=== PATIENT | female | born 1950 | race Caucasian/White ===

== ENCOUNTER 2024-09-30 10:50 | Outpatient (AMB) | payer BC, SELFPAY ==
--- OUTSIDE RECORDS SUMMARY | 2024-09-30 12:02 | XMS_ITS | Clinical Summary ---
Author Organization [facility] Address [address] [place] [id number] Phone Care Team Providers Care Inspection Manager Name Role Phone Grace, Gary James Primary Care Provider Allergies Active Allergy Reactions Criticality Noted Date Comments Penicillins 03/26/2018 Medications pravastatin (PRAVACHOL) 40 MG tablet Take 40 mg by mouth daily. Active atenolol (TENORMIN) 25 MG tablet Take 25 mg by mouth daily. Active glucosamine-cho ndroitin 500-400 mg Cap Take 1 capsule by mouth 3 (three) times a day. Active aspirin 81 mg chewable tablet Take 81 mg by mouth daily. Active calcium carbonate (CALCIUM 600 ORAL) Take 1,200 mg by mouth 2 (two) times a day. Active Social History Tobacco Use Types Packs/Day Years Used Date Smoking Tobacco: Never Smokeless Tobacco: Never Alcohol Use Standard Drinks/Week Comments Yes 7 (1 standard drink = 0.6 oz pur e alcohol) Education Answer Date Recorded Are you interested in more education? Not on osorio e 06/03/2022 Are you concerned about learning? Not on file 06/03/2022 No 06/03/2022 No 06/03/2022 Digital Access Answer Date Recorded No 07/04/2022 No 07/04/2022 No 07/04/2022 Reliable internet access at home? Not on file 07/04/2022 Device with a working camera? Not on file Comments No Sex and Gender Information Value Date Recorded Sex Assigned at Female 03/26/2018 6:21 PM EST Legal Sex Female 10:00 PM EDT Gender Identity Female 03/26/2018 6:21 PM EST Sexual Orientation Straight 03/26/2018 6: 21 PM EST Last Filed Vital Signs Vital Sign Reading Time Taken Comments Blood Pressure 144/91 03/26/2018 10:00 PM EST Pulse 70 03/26/2018 10:00 PM EST Temperature 36 C (96.8 F) 03/26/2018 6:17 PM EST Respiratory Rate 16 03/26/2018 10:00 PM EST Oxygen Saturation 99% 03/26/2018 10:00 PM EST Inhaled Oxygen Concentration - - Weight 55.8 kg (123 lb) 03/26/2018 6:17 PM EST Height 161.3 cm (5' 3.5 ) 03/26/2018 6:17 PM EST Body Mass Index 21.45 03/26/2018 6:17 PM EST Plan of Treatment Not on file Medical Devices Not on file Insurance Take the [employer] SUPPLEMENT MEDICARE PART A & B [employer] MEDEX SUPPLEMENT MEDICARE PART A & B [facility] MEDEX SUPPLEMENT MEDICARE PART A & B [employer] MEDEX SUPPLEMENT MEDICARE PART A & [place] [address] [place] [address] [employer] MEDEX SUPPLEMENT MEDICARE PART A & B [employer] MEDEX SUPPLEMENT MEDICARE PART A & B [employer] MEDEX SUPPLEMENT MEDICARE PART A & B [employer] MEDEX SUPPLEMENT MEDICARE PART A & B [employer] MEDEX SUPPLEMENT MEDICARE PART A & B Care Teams Inspection Manager Relationship Specialty Start Date End Date Luis Grace DO [address] [facility] [place] [address] PCP - General Family Medicine 03/26/18 Additional Source Comments The information contained in this document represents components of the legal health record. It is not the complete legal health record.[facility]
== END 2024-09-30 11:21 | disposition home or self-care (01) ==
PROVIDERS: PCP Family Medicine; Visit Provider Registered Nurse Emergency
DX: J30.89 Other allergic rhinitis (principal)
CPT/HCPCS: 95117; 95165

== ENCOUNTER 2024-10-30 12:44 | Outpatient (AMB) | payer BC, SELFPAY ==
--- OUTSIDE RECORDS SUMMARY | 2024-10-30 15:13 | XMS_ITS | Clinical Summary ---
Author Organization [facility] Address [address] [place] [phone] Phone Care Team Providers Care Java Project Manager Name Role Phone Grace, Gary James [...] file Medical Devices Not on file Insurance [employer] SUPPLEMENT MEDICARE PART A & B [employer] MEDEX SUPPLEMENT MEDICARE PART A & B [facility] MEDEX SUPPLEMENT MEDICARE PART A & B [employer] MEDEX SUPPLEMENT MEDICARE PART A [place] [address] [place] [address] [employer] MEDEX SUPPLEMENT MEDICARE PART A & B [employer] MEDEX SUPPLEMENT MEDICARE PART A & B [employer] MEDEX SUPPLEMENT MEDICARE PART A & B [employer] MEDEX SUPPLEMENT MEDICARE PART A & B [employer] MEDEX SUPPLEMENT MEDICARE PART A & B Care Teams Java Project Manager Relationship Specialty Start Date End Date Luis Grace DO [address] [facility] [place] [address] PCP - General Family Medicine 03/26/18 Additional Source Comments The information contained in this document represents components of the legal health record. It is not the complete legal health record.[facility]
== END 2024-10-30 12:49 | disposition home or self-care (01) ==
LOC: HO.HMGAL 12:44
PROVIDERS: PCP Nurse Practitioner; Visit Provider Registered Nurse Emergency
DX: J30.89 Other allergic rhinitis (principal)
CPT/HCPCS: 95117; 95165

== ENCOUNTER 2024-12-11 13:19 | Outpatient (AMB) | payer MEDICARE, BC, SELFPAY ==
--- OUTSIDE RECORDS SUMMARY | 2024-12-11 16:08 | XMS_ITS | Clinical Summary ---
Author Organization [facility] Address [address] [place] [phone] Phone Care Team Providers Care Supervisor Wrapping Room Name Role Phone Grace, Gary James Primary [...] file Medical Devices Not on file Insurance [employer] SUPPLEMENT MEDICARE PART A & B [employer] MEDEX SUPPLEMENT MEDICARE PART A & B [facility] MEDEX SUPPLEMENT MEDICARE PART A & B [employer] MEDEX SUPPLEMENT MEDICARE PART A [place] [address] [place] [address] [employer] MEDEX SUPPLEMENT MEDICARE PART A & B [employer] MEDEX SUPPLEMENT MEDICARE PART A & B [employer] MED[employer] SUPPLEMENT MEDICARE PART A & B Member Subscriber Plan / Payer (Ef fective 2016-Present) Name:Kathrine Martinez Member ID:[id number] Relation to Subscriber:Self Name:Kathrine Martinez Subscriber ID:[id number] Payer ID:[id number] Group ID:Not on file Type:Medicare Address: [facility] [employer] [facility] [address] [place] [address] [employer] MEDEX SUPPLEMENT MEDICARE PART A & B [employer] MED[employer] SUPPLEMENT MEDICARE PART A & B Care Teams Supervisor Wrapping Room Relationship Specialty Start Date End Date Luis Grace DO [address] [facility] [place] [address] PCP - General Family Medicine 03/26/18 Additional Source Comments The information contained in this document represents components of the legal health record. It is not the complete legal health record.[facility]
== END 2024-12-11 13:19 | disposition home or self-care (01) ==
LOC: HO.HMGAL 13:19
PROVIDERS: PCP Nurse Practitioner; Visit Provider Registered Nurse Emergency
DX: J30.89 Other allergic rhinitis (principal)
CPT/HCPCS: 95117; 95165

== ENCOUNTER 2025-01-13 11:19 | Outpatient (AMB) | payer MEDICARE, BC, SELFPAY | END 2025-01-13 11:21 | disposition home or self-care (01) | LOC: HO.HMGAL 11:19 | PROVIDERS: PCP Nurse Practitioner; Visit Provider Registered Nurse Emergency | DX: J30.89 Other allergic rhinitis (principal) | CPT/HCPCS: 95117; 95165 ==